=== PATIENT | female | born 1965 | race Caucasian/White ===

== ENCOUNTER 2019-01-06 10:01 | Observation (INO) ==
[~2019-01-06 10:01] MED LIST: Total Joint Mixture (50 ml) IR ONE
[2019-01-06] MEDS ORDERED: Clindamycin 900 MG/50 ML 900 MG/50 ML IV.SOLN IVPB ONE (10:14)
[2019-01-06] MEDS ORDERED: Ringers Solution, Lactated 1,000 ML IVC SCH (10:15)
--- NOTE | 2019-01-06 10:30 | History & Physical Report ---
Date of Encounter: 01/06/19 Time of Encounter: 10:29 24 Hour HP Update - Instructions Instructions: If the History and Physical is less than 30 days old and was completed prior to A.M. admission and or procedure and has NOT been updated on calendar day of procedure please complete this update prior to performing procedure. - Update Patient reports changes in Medical Condition: No Changes in examination, assessment, or condition: No Changes in Medication: No Preop tests/diagnostics Reviewed: Yes Surgery Remains Indicated: Yes Consent for Planned Operative Procedure(s) Verified: Yes - Pre-Operative Checklist Preoperative Checklist Indicated: No Prophylactic Antibiotic Ordered: Yes Is VTE Prophylaxis Indicated?: Yes
[2019-01-06] MEDS ORDERED: Celecoxib 100 MG CAPSULE PO ONE (10:41)
[2019-01-06] MEDS ORDERED: Acetaminophen IV 1,000 MG/100 ML INFUS..BTL IVPB ONE (10:41)
[2019-01-06] MEDS ORDERED: Gabapentin 300 MG CAPSULE PO ONE (10:41)
[2019-01-06] MEDS ORDERED: *HR* OxyCODONE Immed Rel 5 MG TABLET PO ONE (10:41)
[2019-01-06] MEDS ORDERED: *HR* Midazolam HCl 2 MG/2 ML VIAL ONE (10:49)
[2019-01-06] MEDS ORDERED: *HR* FentaNYL (PF) 100 MCG/2 ML VIAL ONE (10:49)
--- NOTE | 2019-01-06 11:07 | Anesthesia Evaluation PreOp ---
Date of Encounter: 01/06/19 Time of Encounter: 11:05 - Past History Planned Operation: Left Robotic Total Knee Arthroplasty Cardiac History: Denies any Significant Hx Pulmonary History: Former smoker [employer] History: Denies Any Significant HX Other Medical History: Denies Any Significant HX Anesthesia History: No Prior Anesthetic Complications, Past Anesthesia (D&C, Right Thumb, R & L TKR) : No Alcohol Use: none Drug use: none Medications and Allergies Docusate Sodium [Colace] 100 mg PO BID 5 Days #10 capsule 01/06/19 [Rx] Oxaprozin [Daypro] 600 mg PO DAILY 01/06/19 [History] OxyCODONE Immed Rel [Roxicodone 5 MG] 5 mg PO Q6HR PRN 5 Days #20 tablet 01/06/19 [Rx] Allergy/AdvReac Type Severity Reaction Status Date / Time cefdinir [From Omnicef] Allergy Rash Verified 10/23/18 09:43 - Meds/Allergy Pre-op Review Medications Reviewed: Yes Allergies Reviewed: Yes Beta Blockers on Current Med List: No Anesthesia Results - Labs Laboratory Tests 12/23/18 12/23/18 12/23/18 10:50 10:50 10:50 WBC 7.0 Hgb 15.0 Hct 46.0 H INR 1.0 Sodium 140 Potassium 4.2 Chloride 106 Carbon Dioxide 27 BUN 18 Creatinine 0.65 Anesthesia Exam O2 Sat Height 1.65 m Height 1.65 m Weight 106.594 kg Weight 106.594 kg O2 Sat by Pulse Oximetry 94 Vital Signs Temp Pulse Resp BP Pulse Ox 98.2 F 64 18 94/62 94 01/06/19 10:28 01/06/19 10:28 01/06/19 10:28 01/06/19 10:28 01/06/19 10:28 NPO (# of Hours): 8 hrs Pain Scale: 0 Pain Scale Used: Numeric (1 - 10) - HEENT Pupil (Motor): Pupils equal, EOMI Mallampati: I Teeth: Normal Oral Opening: Greater than 3 - [employer] LOC: Oriented [employer] Motor: Normal RUE, Normal LUE, Normal RLE, Normal LLE, Normal Face [employer] Sensory: Normal: RUE, LUE, RLE, LLE, Face - Cardiac Rhythm: Regular Murmur: None JVD: No Carotid Bruit: No - Pulmonary Breath Sounds: bilateral Clear Respiratory Effort: Symmetrical Anesthesia Assess/Plan ASA Score: 2 Level of consciousness: Cooperative Anesthetic Plan: General, Regional Nerve Block Reason for No Neuroaxial/Regional Block: Patient refusal (Does not want Spinal Anesthesia) Autologous Blood: Yes Monitoring Plan: Standard Monitors Recovery Plan: PACU
[2019-01-06] MEDS ORDERED: EPHEDrine 50 MG/ML VIAL ONE (11:08)
[2019-01-06] MEDS ORDERED: Lidocaine -MPF 2% 5 ML VIAL ONE (11:13)
[2019-01-06] MEDS ORDERED: ROPIVACAINE/PF/NS SYRINGE INTRAART ONE (11:13)
[2019-01-06] MEDS ORDERED: *HR* Propofol 200 MG/20 ML VIAL IVP ONE (11:14)
[2019-01-06] MEDS ORDERED: Lidocaine -MPF 2% 2 ML VIAL ONE (11:14)
[2019-01-06] MEDS ORDERED: Ethanol\\Acetic Acid\\Na Ace\\Ben 1,000 ML IRRIG.SOLN IR ONE (11:48)
--- NOTE | 2019-01-06 11:51 | Anesthesia Procedures ---
Date of Encounter: 01/06/19 Time of Encounter: 11:49 Procedures: Anesthesia - Nerve Block Procedure Date: 01/06/19 Time: 11:49 Pre-op Diagnosis: post op pain Surgical Procedure: L TKR Checklist: Correct Patient Identifier, Correct procedure, History checked Correct side: Left Blood Thinner: No Monitor Applied: EKG, BP, Pulse Oximetry Supplemental Oxygen via Nasal Cannula (L/min): 4 Indication: Post Op Analgesia Pre-op Neuro Deficits: No Block Type: Femoral (adductor canal ) Catheter placed: No Sterile Technique: Yes Ultrasound used: Yes Anatomy identified: Yes Visual spread of Local: Yes Neuro Stimulation: No Blood on Needle Aspiration: No Smooth Injection of Local: Yes Pain with Injection of Local: No Prep: Chlorhexadine Needle: 21 x 100 mm Stimuplex Local: Ropivacaine (0.25% with 8 mg decadron ) Volume (cc): 20 ml Number of Attempts: 1 Vitals: BP 98/65 HR 66 O2sat 97 RR 14
[2019-01-06] MEDS ORDERED: KETAMINE HCL 50 MG/ML SYRINGE IV ONE (11:59)
[2019-01-06] MEDS ORDERED: Dexamethasone 4 MG/ML VIAL ONE (12:24)
[2019-01-06] MEDS ORDERED: Ondansetron 4 MG/2 ML VIAL ONE (12:24)
[2019-01-06] MEDS ORDERED: Tranexamic Acid 1,000 MG/10 ML VIAL ONE (12:26)
[2019-01-06] MEDS ORDERED: *HR* HYDROMORPHONE 2 MG/ML VIAL ONE (12:28)
[2019-01-06] MEDS ORDERED: *HR* Magnesium Sulfate 1 GM/2 ML VIAL ONE (12:42)
[2019-01-06] MEDS ORDERED: LIDOCAINE 1% PF 2 ML AMPUL ONE (13:20)
[2019-01-06] MEDS ORDERED: *HR* PHENYLEPHRINE 1,000 MCG/10 ML SYRINGE IVP ONE (13:27)
--- NOTE | 2019-01-06 13:51 | Orthopedic Operative Note ---
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 Gasper Femur: 4TS [id number] stem Tibia: 4 [id number] stem with 5 mm medial augment TS insert:22 Exam Under anesthesia: 8 degrees hyperextension 18 degree varus as calculated by the robot full flexion patient with significant varus valgus instability, well- healed incision no swelling or erythema. Procedural Notes: Gross loosening with subsidence of tibial component. Operative procedure: The patient was brought to the operating room and placed on the operating room table. After general anesthesia was administered the operative knee was examined. Findings were noted in the exam under anesthesia. The operative extremity was prepped and draped in sterile surgical fashion. The patient received IV antibiotics prior to skin incision. A standard midline incision was made centered over the patella incorporating the old incision. The incision was made through the skin and subcutaneous tissue. A medial parapatellar tendon approach was performed. Care was taken to preserve tissue along the medial aspect of the patella. And to protect the patella tendon. Upon entering the knee joint, normal appearing joint fluid was encountered this was sent for Gram stain and culture. Patient had extensive cement reactive synovitis this was excised. The deep MCL was released off the medial tibia. The infra patella fat pad was excised. The patella was everted and evaluated and found to have no abnormality. Knee was brought into flexion. Steinmann pins were placed in the tibia and the femur for the tibial and femoral arrays respectively. Checkpoints were also placed in the tibia and the femur for calculation purposes. The knee including the femur and the tibial registered. Alignment was confirmed. The poly-was removed without incident, the femoral component was removed by disrupting the interface between the patient's distal femur and femoral component with oscillating saw with minimal bone loss. The tibia was grossly loose and was removed with a Nishi clamp. Femoral cuts were made first with robotic assistance, these included the anterior cut posterior cuts chamfer cuts. Tibial cut was then performed with robotic assistance as well. The medial side of the tibial cut was taken down 5 additional millimeters make up for the posterior bone loss is entire medial side was augmented with a 5 mm medial augment. The size 4 femoral guide was seated box cut was made lug holes are drilled. The size 4 tibial tray was seated and prepared with the fin cutter. Trial reduction with the 22 TS Chloe revealed extension of 0 degree and 3 degrees varus full flexion. No varus valgus instability. Intraoperative x-rays showed good position of the components. The tibia and the femur were both reamed up to the appropriate sizes. Trial reduction revealed excellent patella tracking. All trial components were removed all bony surfaces were irrigated. The components were assembled on the back table. The Tibia was seated followed by the femur, Patient had similar findings for motion and stability. The knee was closed by the PA. The knee was then irrigated out with 2 L of pulse irrigation. The extensor mechanism was closed with #2 FiberWire suture and #2 PDS suture. The subcutaneous tissue was then irrigated and closed deep with #1 PDS suture superficially with 0 PDS suture and skin was closed with zip tie The patient was then placed in a sterile dressing and a postoperative brace extubated and transferred to recovery room in stable condition. Anesthesia: GETA Surgeon: Floyd Cruz Was there an dietitian assistant present: No Estimated blood loss (cc): 300 Condition: stable Disposition: PACU
--- NOTE | 2019-01-06 14:53 | Anesthesia Evaluation Post Op ---
Date of Encounter: 01/06/19 Time of Encounter: 14:52 - Vital Signs Vital Signs: Vital Signs/O2 Sat, Most Current Temp Pulse Resp BP Pulse Ox 98.3 F 72 12 112/73 95 01/06/19 14:21 01/06/19 14:41 01/06/19 14:41 01/06/19 14:41 01/06/19 14:41 - Lungs Lungs: Clear Ascult./Percussion - Airway Airway: Non-obstructed - Cardiovascular Regular Rate - Mental Status Mental Status: Alert & Oriented, Answers Appropriately - Pain Pain Scale: 0 Pain Scale used: Numeric (1 - 10) - Nausea Vomiting Nausea Vomiting: Not Present - Hydration Hydration: Ice chips, Has not voided - Discharge PostOp Status: Transfer Patient to floor
[2019-01-06 14:55] LABS: Hematocrit 43.3 % (35.3-44.9); Hemoglobin 13.7 g/dL (11.5-15.4)
[2019-01-06] MEDS ORDERED: MOM Conc 10 ML UD.LIQ PO PRN (15:14)
[2019-01-06] MEDS ORDERED: Sennosides 8.6 MG TABLET PO PRN (15:14)
[2019-01-06] MEDS ORDERED: *HR* Promethazine 25 MG/ML VIAL IVP PRN (15:14)
[2019-01-06] MEDS ORDERED: traMADol 50 MG TABLET PO PRN (15:14)
[2019-01-06] MEDS ORDERED: Temazepam 15 MG CAPSULE PO PRN (15:14)
[2019-01-06] MEDS ORDERED: Ondansetron 4 MG/2 ML VIAL IVP PRN (15:14)
--- NOTE | 2019-01-06 17:14 | Physician Discharge Referral ---
<Geena Kamara C - Last Filed: 01/11/19 12:44> ExtendedCare Referral Info Transfer To: [facility] Provider in Charge: Anthony Expected Duration of Placement: <30 days Prognosis: Good Aware of Diagnosis: Patient Aware of Prognosis: Patient - Transfer Medications Home Medications: RX: Oxaprozin [Daypro] 600 mg PO BID 01/06/19 [History] Multivitamin [One Daily Multivitamin] 1 tab PO DAILY 01/10/19 [History] Allergies/Adverse Reactions: Allergy/AdvReac Type Severity Reaction Status Date / Time cefdinir [From Omnicef] Allergy Rash Verified 10/23/18 09:43 - Respiratory Orders Smoking Cessation: Smoking cessation has been advised. For more information, call the [employer] Tobacco Quit Line at 3-190-VEKZ-NOW. - Ancillary Orders May use pressure relief devices daily prn, May go on XIOMARA w/family/respon democrat w/meds at nurse discretion PRN, May consult with Dentist, Manager Transfer, [place] Swage Operator PRN - Advance Directives Code Status: Full Code - Mobility Orders Chair, Ambulate - Rehabiliation Orders Rehab Potential: Good Rehab Orders: ROM Exercises, Evaluation for Physical Therapy, Evaluation for Occupational Therapy Other: Opsite dressing, leave intact until first post-operative visit. If dressing becomes >50% saturated, contact office, remove dressing and place appropriate dressing in its place. Do not allow for dressing to get wet. Zipline/[place] in place, plan to remove at post-operative day #14-16. Total Joint Precautions x 6 weeks Apply cold therapy wrap 3-6x/day for 20 minutes at a time. Encourage ambulation throughout the day Use Incentive spirometer 10x/hour. Elevate affected extremity above heart as tolerated. Brace: Wear T-ROM brace locked in extension at all times only removing for hygiene purposes NO KNEE FLEXION - Treatments Skin tear care topically daily PRN per policy - Diet Orders Regular CERTIFICATION: I certify that the transfer of the above named patient to an Extended Care Facility is necessary for the continuing treatment of the diagnosis listed. The above information is true and accurate reflection of patient's current condition. Confidential - Redisclosure prohibited without a patient's written consent. <Geena Yoon E - Last Filed: 01/11/19 22:06> - Diagnosis (1) Prosthetic joint loosening Status: Chronic (2) Status post total left knee replacement Status: Acute - Respiratory Orders Smoking Cessation: Smoking cessation has been advised. For more information, call the [place] Tobacco Quit Line at 2-861-NQRY-NOW. - Rehabiliation Orders Other: ORDER CORRECTION: WEAR TROM BRACE WITH ALL ACTIVITY. UNLOCK FLEXION GRADUALLY. CERTIFICATION: I certify that the transfer of the above named patient to an Extended Care Facility is necessary for the continuing treatment of the diagnosis listed. The above information is true and accurate reflection of patient's current condition. Confidential - Redisclosure prohibited without a patient's written consent.
[2019-01-06] MEDS: Ascorbic Acid 500 MG TABLET PO SCH (17:35)
[2019-01-06] MEDS: Clindamycin 900 MG/50 ML 900 MG/50 ML IV.SOLN IVPB SCH ×2 (17:35→23:38)
[2019-01-06] MEDS: Ringers Solution, Lactated 1,000 ML IVC SCH (18:19)
[2019-01-06] MEDS: *HR* Enoxaparin 30 MG/0.3 ML SYRINGE SQ SCH (19:57)
[2019-01-06] MEDS: Ketorolac 30 MG/ML VIAL IVP SCH ×2 (19:57→23:39)
[2019-01-07] MEDS: Acetaminophen IV 1,000 MG/100 ML INFUS..BTL IVPB SCH ×4 (00:46→18:14)
[2019-01-07] MEDS: Ketorolac 30 MG/ML VIAL IVP SCH (05:13)
[2019-01-07] MEDS: *HR* Enoxaparin 30 MG/0.3 ML SYRINGE SQ SCH ×2 (05:13→16:56)
--- NOTE | 2019-01-07 06:47 | Orthopedics Progress Note ---
Date of Encounter: 01/07/19 Time of Encounter: 06:47 Subjective Interval history: Patient was seen this morning doing well without complaints. Afebrile vital signs stable. Operative extremity: Neurovascularly intact Dressing clean dry and intact Calves nontender Assessment and plan: Continue with postoperative care Hematocrit 43 Objective Vital signs: Vital Signs Temp Pulse Resp BP Pulse Ox 01/07/19 03:58 98.0 F 81 15 101/67 90 01/07/19 00:04 98.1 F 77 16 102/68 93 01/06/19 21:26 97 01/06/19 20:00 106/70 01/06/19 18:13 97.4 F L 71 15 97/70 97 01/06/19 17:19 97.4 F L 74 14 93/63 95 01/06/19 16:15 97.7 F 71 13 107/76 95 01/06/19 15:45 97.8 F 79 14 112/75 94 01/06/19 15:23 97.6 F 72 14 104/71 100 01/06/19 15:01 97.7 F 61 12 112/79 96 01/06/19 14:51 97.7 F 73 12 104/84 95 01/06/19 14:41 72 12 112/73 95 01/06/19 14:31 78 14 115/81 95 01/06/19 14:21 98.3 F 85 16 138/84 93 01/06/19 12:11 62 16 92/54 98 01/06/19 12:07 64 16 99/55 97 01/06/19 12:02 68 16 98/52 96 01/06/19 11:57 66 16 95/59 96 01/06/19 11:51 70 99/56 96 01/06/19 11:49 66 98/65 93 01/06/19 11:46 66 96/62 96 01/06/19 11:35 68 96/66 99 01/06/19 10:28 98.2 F 64 18 94/62 94 Intake and Output 01/06/19 01/06/19 01/07/19 15:59 23:59 07:59 Intake Total 50 / 50 290 / 290 250 / 250 Output Total 300 / 300 700 / 700 Balance -250 / -250 -410 / -410 250 / 250 Intake: IV Fluids 50 / 50 50 / 50 250 / 250 Ofirmev 1,000 mg/100 ml 1,000 200 / 200 mg In 100 ml @ 400 mls/hr IVPB Q6HR [facility] Rx#:[id number] Cleocin Premix 900 MG/50 ML 900 50 / 50 50 / 50 50 / 50 mg In 50 ml @ 50 mls/hr IVPB Q8HR [facility] Rx#:[id number] Oral 240 / 240 Output: Urine 400 / 400 Emesis 300 / 300 Estimated Blood Loss 300 / 300 Other: Weight 106.594 kg - Labs CBC & BMP: 01/06/19 14:36 Consult Discharge Plan - Plan Referrals: NONE,PCP [Primary Care Provider] - Prescriptions: Docusate Sodium [Colace] 100 mg PO BID 5 Days #10 capsule OxyCODONE Immed Rel [Roxicodone 5 MG] 5 mg PO Q6HR PRN 5 Days #20 tablet PRN Reason: Severe Pain
[2019-01-07 07:33] LABS: Basophils % 0.1 %; Hematocrit 35.8 % (35.3-44.9); Immature Granulocytes % 0.3 % (0-4); Lymphocytes # 1.3 K/mcL (0.6-4.6); Lymphocytes % 11.7 %; Mean Corpuscular HGB Conc 33.2 g/dL (31.6-35.5); Mean Corpuscular Hemoglobin 28.7 pg (28.0-33.3); Mean Corpuscular Volume 86.5 fL (83.0-100.0); Mean Platelet Volume 10.6 fL (9.4-12.4); Monocytes # 0.6 K/mcL (0.0-1.3); Monocytes % 5.5 %; Platelet Count 220 K/mcL (140-400); Red Blood Count 4.14 M/mcL (3.82-4.97); Red Cell Distribution Width 13.8 % (11.5-14.5); Segmented Neutrophils % 82.4 %
[2019-01-07 07:34] LABS: Hemoglobin 11.9 g/dL (11.5-15.4)
[2019-01-07 07:50] LABS: BUN/Creatinine Ratio 25 (6-26); Blood Urea Nitrogen 14 mg/dL (6-20); Calcium 8.4 mg/dL (8.6-10.3); Carbon Dioxide 26 mEq/L (23-29); Chloride 105 mEq/L (98-107); Glucose 173 mg/dL (70-105); Osmolality,Calculated 289 (280-300); Potassium 4.5 mEq/L (3.5-5.1); Sodium 137 mEq/L (136-145); eGFR For Non-African Americans > 60 (> 60)
[2019-01-07] MEDS: Ascorbic Acid 500 MG TABLET PO SCH ×2 (08:03→16:56)
[2019-01-07] MEDS: Multivit/Ca/Min/Fe/FA 1 TAB TABLET PO SCH (08:03)
[2019-01-07] MEDS ORDERED: Diclofenac Sodium (24 HR) 100 MG TABLET PO SCH (09:00)
[2019-01-07] MEDS: tiZANidine 4 MG TABLET PO PRN (15:03)
[2019-01-07] MEDS ORDERED: Ketorolac 30 MG/ML VIAL IVP SCH (18:27)
[2019-01-07] MEDS: *HR* OxyCODONE/APAP 5/325 TABLET PO PRN (22:54)
[2019-01-08] MEDS: Acetaminophen IV 1,000 MG/100 ML INFUS..BTL IVPB SCH ×5 (00:43→23:54)
[2019-01-08 04:57] LABS: Basophils % 0.5 %; Eosinophils # 0.1 K/mcL (0.0-0.6); Eosinophils % 1.1 %; Hematocrit 32.7 % (35.3-44.9); Hemoglobin 10.6 g/dL (11.5-15.4); Immature Granulocytes % 0.2 % (0-4); Lymphocytes # 3.1 K/mcL (0.6-4.6); Mean Corpuscular HGB Conc 32.4 g/dL (31.6-35.5); Mean Corpuscular Hemoglobin 28.4 pg (28.0-33.3); Mean Corpuscular Volume 87.7 fL (83.0-100.0); Mean Platelet Volume 10.4 fL (9.4-12.4); Monocytes # 0.6 K/mcL (0.0-1.3); Monocytes % 7.6 %; Neutrophils # 4.3 K/mcL (1.6-8.9); Platelet Count 193 K/mcL (140-400); Red Blood Count 3.73 M/mcL (3.82-4.97); Red Cell Distribution Width 14.2 % (11.5-14.5); Segmented Neutrophils % 52.6 %
[2019-01-08 05:09] LABS: BUN/Creatinine Ratio 23 (6-26); Blood Urea Nitrogen 14 mg/dL (6-20); Calcium 8.1 mg/dL (8.6-10.3); Carbon Dioxide 29 mEq/L (23-29); Chloride 107 mEq/L (98-107); Glucose 121 mg/dL (70-105); Osmolality,Calculated 290 (280-300); Potassium 3.9 mEq/L (3.5-5.1); Sodium 139 mEq/L (136-145); eGFR For Non-African Americans > 60 (> 60)
[2019-01-08] MEDS: *HR* Enoxaparin 30 MG/0.3 ML SYRINGE SQ SCH ×2 (06:17→16:56)
--- NOTE | 2019-01-08 06:43 | Orthopedics Progress Note ---
Date of Encounter: 01/08/19 Time of Encounter: 06:42 Subjective Interval history: Patient was seen this morning doing well without complaints. Afebrile vital signs stable. Operative extremity: Neurovascularly intact Dressing clean dry and intact Calves nontender Assessment and plan: Continue with postoperative care Stable for discharge Objective Vital signs: Vital Signs Temp Pulse Resp BP Pulse Ox 01/08/19 03:30 98.6 F 83 16 102/67 93 01/07/19 23:51 98.2 F 81 17 135/81 96 01/07/19 18:44 98.3 F 76 15 96/62 94 01/07/19 18:38 98.2 F 68 16 116/78 98 01/07/19 11:26 98.3 F 72 14 112/72 98 01/07/19 07:41 98.5 F 79 18 95/64 94 Intake and Output 01/07/19 01/07/19 01/08/19 15:59 23:59 07:59 Intake Total 100 / 100 100 / 100 100 / 100 Output Total 300 / 300 Balance -200 / -200 100 / 100 100 / 100 Intake: IV Fluids 100 / 100 100 / 100 100 / 100 Ofirmev 1,000 mg/100 ml 1,000 100 / 100 100 / 100 100 / 100 mg In 100 ml @ 400 mls/hr IVPB Q6HR [facility] Rx#:[id number] Output: Urine 300 / 300 Other: # Voids 1 1 1 # Bowel Movements 1 Weight 107 kg Patient Weight 01/08/19 23:59 Weight 107 kg - Labs CBC & BMP: 01/08/19 04:18 01/08/19 04:18 Labs: Abnormal lab results RBC 3.73 M/mcL (3.82-4.97) L 01/08/19 04:18 Hgb 10.6 g/dL (11.5-15.4) L 01/08/19 04:18 Hct 32.7 % (35.3-44.9) L 01/08/19 04:18 Glucose 121 mg/dL (70-105) H 01/08/19 04:18 Calcium 8.1 mg/dL (8.6-10.3) L 01/08/19 04:18 Consult Discharge Plan - Plan Referrals: NONE,PCP [Primary Care Provider] - Prescriptions: Docusate Sodium [Colace] 100 mg PO BID 5 Days #10 capsule OxyCODONE Immed Rel [Roxicodone 5 MG] 5 mg PO Q6HR PRN 5 Days #20 tablet PRN Reason: Severe Pain
[2019-01-08] MEDS: Ascorbic Acid 500 MG TABLET PO SCH ×2 (07:42→16:56)
[2019-01-08] MEDS: Multivit/Ca/Min/Fe/FA 1 TAB TABLET PO SCH (07:42)
[2019-01-08] MEDS: *HR* OxyCODONE/APAP 5/325 TABLET PO PRN (07:42)
[2019-01-08] MEDS: Celecoxib 200 MG CAPSULE PO SCH ×2 (07:42→20:24)
[2019-01-08] MEDS: tiZANidine 4 MG TABLET PO PRN ×2 (09:18→16:56)
[2019-01-08] MEDS: *HR* OxyCODONE Immed Rel 5 MG TABLET PO PRN ×3 (14:36→22:37)
[2019-01-08] MEDS: Aspirin Enteric Coated 325 MG Tablet PO SCH (20:24)
--- NOTE | 2019-01-08 23:17 | Discharge Summary ---
Orders not resulted at time of discharge: Pending orders 01/06/19 11:41 US anesthesia pain block [US] Routine 01/06/19 12:36 Culture,Anaerobic [RM] Stat Culture,Wound [RM] Stat 01/06/19 13:51 Surgical Pathology [PTH] Routine Date of Encounter: 01/12/19 Time of Encounter: 11:30 - Discharge Diagnosis (1) Prosthetic joint loosening Priority: Primary Status: Chronic Qualifiers: Encounter type: subsequent encounter Qualified Code(s): T84.039D - Mechanical loosening of unspecified internal prosthetic joint, subsequent encounter (2) Status post total left knee replacement Priority: Primary Status: Acute - Hospital Course Hospital course: Ms. Schmitt is a 53 year old female s/p Date of procedure: 01/06/19 Pre-op diagnosis: Aseptic loosening left total knee Post-op diagnosis: same Procedure: Revision left robotic-assisted Total knee replacement - Time Spent with Patient Total time spent providing and/or coordinating discharge services: - Discharge Medications Prescriptions: New OxyCODONE Immed Rel [Roxicodone 5 MG] 5 mg PO Q6HR PRN 5 Days #20 tablet PRN Reason: Severe Pain Aspirin Enteric Coated [Aspirin EC] 325 mg PO BID tablet. Celecoxib [Celebrex] 200 mg PO DAILY capsule Docusate [Colace] 100 mg PO BID capsule Tizanidine HCl 4 mg PO TID PRN 7 Days #21 tablet PRN Reason: Spasms Continue Oxaprozin [Daypro] 600 mg PO BID Multivitamin [One Daily Multivitamin] 1 tab PO DAILY Home Medications: Oxaprozin [Daypro] 600 mg PO BID 01/06/19 [History] Multivitamin [One Daily Multivitamin] 1 tab PO DAILY 01/10/19 [History] Aspirin Enteric Coated [Aspirin EC] 325 mg PO BID tablet. 01/12/19 [Rx] Celecoxib [Celebrex] 200 mg PO DAILY capsule 01/12/19 [Rx] Docusate [Colace] 100 mg PO BID capsule 01/12/19 [Rx] OxyCODONE Immed Rel [Roxicodone 5 MG] 5 mg PO Q6HR PRN 5 Days #20 tablet 01/12/19 [Rx] Tizanidine HCl 4 mg PO TID PRN 7 Days #21 tablet 01/12/19 [Rx] Allergies/Adverse Reactions: Allergy/AdvReac Type Severity Reaction Status Date / Time cefdinir [From Omnicef] Allergy Rash Verified 10/23/18 09:43 Date of admission: 01/08/19 17:54 Primary care physician: PCP NONE Consults: 01/06/19 15:14 Consult to Nutrition [CONS] Routine Comment: Consulting Provider: NUTRITION Reason for Dietary Consult: Other Other:: Proper nutrition to facilitate wound healing Consult to Occupational Therapy [CONS] Routine Comment: Evaluate, develop and implement POC Reason for Consult: post knee surgery Does patient have active BEDREST order?: No Is patient medically & hemodynamically stable?: Yes Consult to Orthopedic Navigator [CONS] [CONS] Routine Consult to Physical Therapy [CONS] Routine Comment: Evaluate, develop and impliment POC Reason for Consult: post knee surgery Does patient have active BEDREST order?: No Is patient medically & hemodynamically stable?: Yes Consult to Entry Specialist [CONS] Routine Reason for SW Consult: post op joint replacement RT Post Op Consult [CONS] Routine Discharging clinician: Floyd Cruz Anticipated date of discharge: 01/12/19 - VTE Documentation of Mechanical Device: Venous foot pump, device Labs on day of discharge: Labs from last 24 hours 01/08/19 01/08/19 04:18 04:18 WBC 8.2 RBC 3.73 L Hgb 10.6 L Hct 32.7 L MCV 87.7 MCH 28.4 MCHC 32.4 RDW 14.2 Plt Count 193 MPV 10.4 Immature Gran % 0.2 Seg Neutrophils % 52.6 Lymphocytes % 38.0 Monocytes % 7.6 Eosinophils % 1.1 Basophils % 0.5 Neutrophils # 4.3 Lymphocytes # 3.1 Monocytes # 0.6 Eosinophils # 0.1 Basophils # 0.0 Sodium 139 Potassium 3.9 Chloride 107 Carbon Dioxide 29 BUN 14 Creatinine 0.60 Est GFR ( Amer) > 60 Est GFR (Non-Af Amer) > 60 BUN/Creatinine Ratio 23 Glucose 121 H Calculated Osmolality 290 Calcium 8.1 L Preliminary micro results at discharge 01/06/19 12:36 Wound Culture - Preliminary Left Knee No growth. 01/06/19 12:36 Anaerobic Culture - Preliminary Left Knee Culture is incubating. - Impressions ITS Impressions Knee X-Ray 01/06/19 01:00 IMPRESSION: Revision of left knee arthroplasty without evidence of acute postoperative complication. D/ / 01/06/2019 14:45:23 Lito Good MD / yadiel Interpreting Provider: Lito Good MD Knee X-Ray 01/06/19 13:20 IMPRESSION: Revised left knee arthroplasty. No acute postoperative complication. The proximal tip of the femoral stem has been excluded on the films. D/ / 01/06/2019 13:44:48 Lito Good MD / [email or web address] Interpreting Provider: Ltio Good MD - Patient Status Disposition: Transfer SNF Condition: Fair Functional capacity at discharge: uses cane/walker Overall status at discharge: patient is progressing back to baseline - Discharge Instructions Follow Up With: NONE,PCP [Primary Care Provider] - Additional Instructions: Discharge Instructions: Total Knee Replacement Please call [facility] ([phone]), your Primary Care Physician, or report to the Emergency Room if you have any of the following symptoms: Nausea, vomiting, fever greater that 101.5, swelling, chest pain, shortness of breath, increased pain/redness/drainage/odor for your incision site, numbness/tingling, or any other concerning symptoms. ACTIVITY:Weight-bearing as tolerated. You may progress off support (crutches or walker) as tolerated. Incentive Spirometer 10 times an hour. MEDICATIONS: Upon discharge resume your home medications. Take all the medications as prescribed. Take a stool softener if taking narcotic pain medications. Stool softeners are only effective if you drink enough fluids. Drink 6-8 glass of water or fluids a day, unless this is not allowed for another health problem. Despite using stool softeners, if you haven't had a bowel movement in 3 days, please switch to a gentle laxative. Gentle laxatives are sold over the counter. You should have a bowel movement within 24 hours, if not call the office. You will be discharged from the hospital with a prescription for pain medication. You are encouraged to decrease the use of narcotic pain medication as tolerated. Should you require a refill, please call the office. [facility] prescribes narcotic pain medication for only 4-6 weeks after surgery. If you require pain medication beyond this time period, you may be referred to your Primary Care Physician or to the Pain Clinic for further evaluation. Plan ahead for refills on pain medication as many narcotics either need to be picked up at the office or mailed. It is best to call 48-72 hours in advance of needing a prescription refill so you don't run out of medication. To help control the post-operative pain, you may take NSAIDs (Aleve,Advil, Motrin, Ibuprofen, Naprosyn) or Tylenol as prescribed on the bottle in addition to the pain medication. ANTICOAGULATION (blood thinners): Continue your Aspirin, Lovenox or Coumadin as prescribed to help prevent a blood clot in the leg or in the lungs. As long as your incision remains dry and you tolerate the NSAIDs (Aleve, Advil, Motrin, ibuprofen, naprosyn), it is OK to use the NSAIDS while you are taking your anticoagulation medication. Should your incision start to drain, stop the NSAID and contact our office. Common symptoms of blood clot in the legs include: localized pain, swelling, calf tenderness, redness or discoloration of the skin. Blood clot in the lung symptoms include: shortness of breath, rapid pulse, sweating, and chest pain that worsens with deep breathing, coughing up blood, lightheadedness, feelings of anxiety. If you experience any of these symptoms notify your physician immediately, go to the emergency room, or if having trouble breathing, call 911. WOUND CARE: Leave the dressing on for 7 to 10days. You may change the dressing if it becomes saturated greater than 50%. Do not get the dressing wet at anytime. Wash your hands with antibacterial soap, rinse and dry prior to any wound care. If you have liseth the visiting nurse or rehab facility can remove the stapes 10-14 days after surgery and place steri-strips across the wound. Leave the steri-strips in place until they fall off on their won. You may let water from the shower run on top of the steri-strips. If you do not have a visiting nurse or rehab facility, you will need to return to the office at 10-14 days for the liseth to be removed. If you have itching or redness around the dressing call the office. FOLLOW-UP: Please follow up with your surgeon in the orthopedic clinic in 4 weeks from the day of surgery. If you have liseth that need to be removed, you will need to come back to the office in 10-14 days from the day of surgery. - Diet and Activity Activity: as per physical therapy Diet: advance to your usual diet
[2019-01-09] MEDS: Acetaminophen IV 1,000 MG/100 ML INFUS..BTL IVPB SCH ×4 (05:12→23:53)
[2019-01-09] MEDS: *HR* OxyCODONE Immed Rel 5 MG TABLET PO PRN ×3 (06:08→17:24)
--- NOTE | 2019-01-09 06:34 | Orthopedics Progress Note ---
Date of Encounter: 01/09/19 Time of Encounter: 06:33 Subjective Interval history: Patient was seen this morning doing well without complaints. Afebrile vital signs stable. Operative extremity: Neurovascularly intact Dressing clean dry and intact Calves nontender Assessment and plan: Continue with postoperative care Awaiting placement Objective Vital signs: Vital Signs Temp Pulse Resp BP Pulse Ox 01/09/19 06:29 98.4 F 65 18 114/74 97 01/09/19 03:39 98 F 71 16 109/72 94 01/09/19 00:10 97.7 F 64 16 100/67 95 01/08/19 19:04 97.8 F 71 16 96/62 94 01/08/19 15:22 128/80 01/08/19 14:47 98.1 F 71 18 99/65 97 01/08/19 11:21 98.0 F 81 16 93/60 93 01/08/19 07:46 98.5 F 70 18 117/78 94 Intake and Output 01/08/19 01/08/19 01/09/19 15:59 23:59 07:59 Intake Total 560 / 560 150 / 150 300 / 300 Balance 560 / 560 150 / 150 300 / 300 Intake: IV Fluids 100 / 100 100 / 100 200 / 200 Ofirmev 1,000 mg/100 ml 1,000 100 / 100 100 / 100 200 / 200 mg In 100 ml @ 400 mls/hr IVPB Q6HR [facility] Rx#:[id number] Oral 460 / 460 50 / 50 100 / 100 Other: Meal Lunch Percent of Meal Consumed 95% # Voids 3 1 1 Weight 110.3 kg Patient Weight 01/09/19 23:59 Weight 110.3 kg - Labs CBC & BMP: 01/08/19 04:18 01/08/19 04:18 Labs: Abnormal lab results RBC 3.73 M/mcL (3.82-4.97) L 01/08/19 04:18 Hgb 10.6 g/dL (11.5-15.4) L 01/08/19 04:18 Hct 32.7 % (35.3-44.9) L 01/08/19 04:18 Glucose 121 mg/dL (70-105) H 01/08/19 04:18 Calcium 8.1 mg/dL (8.6-10.3) L 01/08/19 04:18 - VTE Documentation of Mechanical Device: Venous foot pump, device Consult Discharge Plan - Plan Referrals: NONE,PCP [Primary Care Provider] -
[2019-01-09] MEDS: Aspirin Enteric Coated 325 MG Tablet PO SCH ×2 (09:13→22:15)
[2019-01-09] MEDS: Ascorbic Acid 500 MG TABLET PO SCH ×2 (09:13→17:17)
[2019-01-09] MEDS: Celecoxib 200 MG CAPSULE PO SCH ×2 (09:13→22:15)
[2019-01-09] MEDS: Multivit/Ca/Min/Fe/FA 1 TAB TABLET PO SCH (09:13)
[2019-01-09] MEDS: Ringers Solution, Lactated 1,000 ML IVC SCH ×4 (22:08→23:14)
[2019-01-09] MEDS: *HR* OxyCODONE/APAP 5/325 TABLET PO PRN (22:15)
[2019-01-10] MEDS: Acetaminophen IV 1,000 MG/100 ML INFUS..BTL IVPB SCH ×2 (05:43→12:00)
--- NOTE | 2019-01-10 06:21 | Orthopedics Progress Note ---
Date of Encounter: 01/10/19 Time of Encounter: 06:20 Subjective Interval history: Patient was seen this morning doing well without complaints. Afebrile vital signs stable. Operative extremity: Neurovascularly intact Dressing clean dry and intact Calves nontender Assessment and plan: Continue with postoperative care Plan for discharge tomorrow Objective Vital signs: Vital Signs Temp Pulse Resp BP Pulse Ox 01/10/19 04:33 98.3 F 87 14 104/69 96 01/09/19 22:35 99.3 F 82 16 106/63 95 01/09/19 19:04 98.1 F 80 18 107/70 96 01/09/19 15:38 97.9 F 85 16 106/70 98 01/09/19 10:34 97.9 F 83 18 113/78 95 01/09/19 06:29 98.4 F 65 18 114/74 97 Intake and Output 01/09/19 01/09/19 01/10/19 15:59 23:59 07:59 Intake Total 360 / 360 1250 / 1250 50 / 50 Output Total 0 / 0 0 / 0 Balance 360 / 360 1250 / 1250 50 / 50 Intake: IV Fluids 1000 / 1000 Lactated Ringers 1,000 ML @ 75 1000 / 1000 mls/hr IVC .[id number] Rx#: [id number] Oral 360 / 360 250 / 250 50 / 50 Output: Urine 0 / 0 0 / 0 Other: Meal Breakfast Percent of Meal Consumed 100% Stool Size Small Stool Consistency loose soft # Voids 2 1 1 # Bowel Movements 1 Weight 110.56 kg Patient Weight 01/10/19 23:59 Weight 110.56 kg - Labs CBC & BMP: 01/08/19 04:18 01/08/19 04:18 Labs: Abnormal lab results RBC 3.73 M/mcL (3.82-4.97) L 01/08/19 04:18 Hgb 10.6 g/dL (11.5-15.4) L 01/08/19 04:18 Hct 32.7 % (35.3-44.9) L 01/08/19 04:18 Glucose 121 mg/dL (70-105) H 01/08/19 04:18 Calcium 8.1 mg/dL (8.6-10.3) L 01/08/19 04:18 - VTE Documentation of Mechanical Device: Venous foot pump, device Consult Discharge Plan - Plan Referrals: NONE,PCP [Primary Care Provider] -
[2019-01-10] MEDS: Ascorbic Acid 500 MG TABLET PO SCH ×2 (07:54→17:18)
[2019-01-10] MEDS: *HR* OxyCODONE Immed Rel 5 MG TABLET PO PRN ×4 (07:54→23:26)
[2019-01-10] MEDS: Aspirin Enteric Coated 325 MG Tablet PO SCH ×2 (07:55→20:05)
[2019-01-10] MEDS: Multivit/Ca/Min/Fe/FA 1 TAB TABLET PO SCH (07:55)
[2019-01-10] MEDS: Celecoxib 200 MG CAPSULE PO SCH ×2 (07:55→20:05)
[2019-01-10] MEDS: Ringers Solution, Lactated 1,000 ML IVC SCH (17:20)
[2019-01-11] MEDS: *HR* OxyCODONE Immed Rel 5 MG TABLET PO PRN ×4 (04:49→17:48)
--- NOTE | 2019-01-11 06:21 | Orthopedics Progress Note ---
Date of Encounter: 01/11/19 Time of Encounter: 06:20 Subjective Interval history: Patient was seen this morning doing well without complaints. Afebrile vital signs stable. Operative extremity: Neurovascularly intact Dressing clean dry and intact Calves nontender Assessment and plan: Continue with postoperative care Discharged today Objective Vital signs: Vital Signs Temp Pulse Resp BP Pulse Ox 01/11/19 04:40 97.8 F 75 14 113/71 95 01/11/19 01:04 97.9 F 84 14 108/69 95 01/10/19 19:22 97.9 F 78 16 110/75 97 01/10/19 15:00 98.1 F 84 18 113/75 97 01/10/19 10:43 98.4 F 72 18 102/68 97 01/10/19 06:33 98.4 F 74 18 110/73 95 Intake and Output 01/10/19 01/10/19 01/11/19 15:59 23:59 07:59 Intake Total 490 / 490 490 / 490 250 / 250 Output Total 0 / 0 0 / 0 Balance 490 / 490 490 / 490 250 / 250 Intake: Oral 490 / 490 490 / 490 250 / 250 Output: Urine 0 / 0 0 / 0 Other: Meal Lunch Dinner Percent of Meal Consumed 90% 100% # Voids 2 1 1 Weight 111.3 kg Patient Weight 01/11/19 23:59 Weight 111.3 kg - Labs CBC & BMP: 01/08/19 04:18 01/08/19 04:18 Labs: Abnormal lab results RBC 3.73 M/mcL (3.82-4.97) L 01/08/19 04:18 Hgb 10.6 g/dL (11.5-15.4) L 01/08/19 04:18 Hct 32.7 % (35.3-44.9) L 01/08/19 04:18 Glucose 121 mg/dL (70-105) H 01/08/19 04:18 Calcium 8.1 mg/dL (8.6-10.3) L 01/08/19 04:18 - VTE Documentation of Mechanical Device: Venous foot pump, device Consult Discharge Plan - Plan Referrals: NONE,PCP [Primary Care Provider] -
[2019-01-11] MEDS: Multivit/Ca/Min/Fe/FA 1 TAB TABLET PO SCH (07:40)
[2019-01-11] MEDS: Aspirin Enteric Coated 325 MG Tablet PO SCH ×2 (07:40→23:03)
[2019-01-11] MEDS: Ascorbic Acid 500 MG TABLET PO SCH ×2 (07:40→17:48)
[2019-01-11] MEDS: Celecoxib 200 MG CAPSULE PO SCH ×2 (07:40→23:04)
[2019-01-11] MEDS: *HR* OxyCODONE/APAP 5/325 TABLET PO PRN (23:03)
[2019-01-12] MEDS: *HR* OxyCODONE Immed Rel 5 MG TABLET PO PRN ×2 (06:13→16:06)
--- NOTE | 2019-01-12 06:42 | Orthopedics Progress Note ---
Date of Encounter: 01/12/19 Time of Encounter: 06:42 Subjective Interval history: Patient was seen this morning doing well without complaints. Afebrile vital signs stable. Operative extremity: Neurovascularly intact Dressing clean dry and intact Calves nontender Assessment and plan: Continue with postoperative care Awaiting placement Discharged today Objective Vital signs: Vital Signs Temp Pulse Resp BP Pulse Ox 01/12/19 06:12 108/72 01/12/19 00:03 98.0 F 72 16 96/63 94 01/11/19 20:30 98.5 F 75 17 106/69 97 01/11/19 16:45 98.2 F 69 18 105/70 96 Intake and Output 01/11/19 01/11/19 01/12/19 15:59 23:59 07:59 Intake Total 880 / 880 Balance 880 / 880 Intake: Oral 880 / 880 Other: Meal Lunch Percent of Meal Consumed 75% # Voids 1 1 1 Weight 111.6 kg Patient Weight 01/12/19 23:59 Weight 111.6 kg - Labs CBC & BMP: 01/08/19 04:18 01/08/19 04:18 Labs: Abnormal lab results RBC 3.73 M/mcL (3.82-4.97) L 01/08/19 04:18 Hgb 10.6 g/dL (11.5-15.4) L 01/08/19 04:18 Hct 32.7 % (35.3-44.9) L 01/08/19 04:18 Glucose 121 mg/dL (70-105) H 01/08/19 04:18 Calcium 8.1 mg/dL (8.6-10.3) L 01/08/19 04:18 - VTE Documentation of Mechanical Device: Venous foot pump, device Consult Discharge Plan - Plan Referrals: NONE,PCP [Primary Care Provider] -
[2019-01-12] MEDS: Multivit/Ca/Min/Fe/FA 1 TAB TABLET PO SCH (09:18)
[2019-01-12] MEDS: Ascorbic Acid 500 MG TABLET PO SCH (09:18)
[2019-01-12] MEDS: Celecoxib 200 MG CAPSULE PO SCH (09:18)
[2019-01-12] MEDS: Aspirin Enteric Coated 325 MG Tablet PO SCH (09:18)
[2019-01-12 11:14] VITALS: BP 126/70
[2019-01-12] MEDS: *HR* OxyCODONE/APAP 5/325 TABLET PO PRN (12:09)
--- NOTE | 2019-01-12 12:45 | Event Note ---
Date of Encounter: 01/12/19
== END 2019-01-12 16:13 ==
LOC: 3NENU 10:01 → SAMDAY 10:01 → 3NENU 15:46
PROVIDERS: ADMIT Orthopaedic Surgery; ATTEND Orthopaedic Surgery